=== PATIENT | female | born 1995 | race Caucasian/White ===

== ENCOUNTER 2021-10-15 21:31 | Emergency (ER) | payer OTHER ==
[~2021-10-15] VITALS: Ht 162.6 cm; Wt 61.2 kg
[2021-10-15] MEDS ORDERED: NORCO5 PO (22:33)
[2021-10-15 22:45] VITALS: BP 113/69
== END 2021-10-15 22:53 | disposition home or self-care (01) ==
LOC: ER 21:31
DX: S60.211A Contusion of right wrist, initial encounter (principal); S60.511A Abrasion of right hand, initial encounter; F41.9 Anxiety disorder, unspecified; F17.200 Nicotine dependence, unspecified, uncomplicated; Z98.890 Other specified postprocedural states; Z88.5 Allergy status to narcotic agent; Z88.0 Allergy status to penicillin; W22.8XXA Striking against or struck by other objects, initial encounter; Y93.89 Activity, other specified; Y92.89 Other specified places as the place of occurrence of the external cause; Y99.8 Other external cause status

== ENCOUNTER 2021-10-18 13:40 | Emergency (ER) | payer OTHER ==
[~2021-10-18] VITALS: Ht 162.6 cm; Wt 61.2 kg
[~2021-10-18 13:40] MED LIST: NORCO5 PO
[2021-10-18 13:43] VITALS: BP 114/64
[2021-10-18] MEDS ORDERED: KEPPRA 500 MG500 MG PO (13:59)
== END 2021-10-18 14:23 | disposition home or self-care (01) ==
LOC: ER 13:40
DX: Z76.0 Encounter for issue of repeat prescription (principal); F41.9 Anxiety disorder, unspecified; F17.210 Nicotine dependence, cigarettes, uncomplicated; Z98.890 Other specified postprocedural states; Z79.899 Other long term (current) drug therapy; Z88.5 Allergy status to narcotic agent; Z88.0 Allergy status to penicillin